=== PATIENT | male | born 2000 | race Hispanic/Latino ===

== ENCOUNTER 2024-01-28 03:14 | Emergency (ER) | payer MEDICARE, SELFPAY ==
[2024-01-28 03:20] VITALS: BP 130/76
[2024-01-28 03:27] VITALS: BP 118/77
--- NOTE | 2024-01-28 03:28 | ED.GENMED ---
History of Present Illness
General
Chief Complaint: Breathing Problem
Source: patient
Exam Limitations: none
Time Seen by Provider: 01/28/24 03:26
Nursing documentation reviewed up to this point in time: agreed with
History of Present Illness
History of Present Illness:
Pleasant 23-year-old male with a history of 'undiagnosed asthma 'prescribed inhalers. Tonight he had an asthma attack and did not have an inhaler. He came into the emergency department. Patient is a smoker. He advised to quit. Denies fever,
chills, nausea or vomiting.
Past History
Social History
Tobacco: Non-smoker
Alcohol: None
Phy Exam
Physical Exam
Physical Exam:
Physical Exam
Vital signs and allergy list reviewed and agreed with.
GENERAL: Alert , in moderate apparent distress
EYE: pupils equal, EOMI, anicteric
NECK: Supple, no significant adenopathy. No masses. Trachea midline
ENT: Oropharynx is clear, mmm.
CARDIAC: Regular rate and rhythm . No M/R/G
LUNGS: Diminished breath sounds bilaterally. Moderate acute respiratory distress. Wheezing in all lung khoury on initial exam. Repeat exam showed absolutely no wheezing.
ABDOMEN: Soft, without focal tenderness, no r/g,
NEUROLOGICAL: Alert and oriented, no focal neuro deficits
SKIN: Warm and dry, skin intact.
MUSCULOSKELETAL: No edema, well perfused. Moves all 4 extremities
PSYCH: Normal and appropriate interaction.
Course
Orders/Labs/Results
Orders:
Orders
01/28/24 03:21
EKG [Electrocardiogram (*1)] Urgent
Reason for Study: Chest Pain
EKG- Treatment ONCE
01/28/24 03:23
Ipratropium/Albuterol Sulfate [Duoneb] 3 ml .ROUTE .STK-MED ONE
01/28/24 03:25
Dexamethasone Pf [Decadron] 10 mg .ROUTE .STK-MED ONE
01/28/24 03:26
Dexamethasone Pf [Decadron] 10 mg PO NOW STA
01/28/24 03:27
Ipratropium/Albuterol Sulfate [Duoneb] 3 ml INH R NOW ONE
CR Chest - 2 Views Urgent
Comment:
Reason For Exam: dyspnea
Vital Signs
Initial and Last Documented VS:
Initial Vital Signs
Temp Pulse Resp Pulse Ox
98.6 F 104 28 98
01/28/24 03:16 01/28/24 03:16 01/28/24 03:16 01/28/24 03:16
Last Documented Vital Signs
Temp Pulse Resp BP Pulse Ox
98.6 F 83 19 111/62 95
01/28/24 03:16 01/28/24 04:30 01/28/24 04:30 01/28/24 04:05 01/28/24 04:30
*Critical Care Note
Total Time (30-74mins, 75-104mins- exclusive of procedures): Not Applicable
Update Note
Update Note:
Patient feeling much better. Wishes to be discharged. Speaking in complete sentences. Reviewed x-ray. Patient is a smoker. I did spend some time counseling him. He vows to quit smoking.
ED Attending Note
-
Portions of this chart may have been created with voice recognition software.� Occasional wrong word or��sound alike� substitutions may have occurred due to the inherent limitations of voice recognition software.
Discharge Plan
Departure
Patient Disposition: Home (Routine Discharge)
Date of Disposition: 01/28/24
Time of Disposition: 04:25
Patient with high blood pressure during this ER visit?: Yes
Condition: Good
Discharge Problem:
Asthma
Instructions: Asthma, Adult (DC), Quitting Smoking ED
Prescriptions:
New
prednisone 50 mg Tablet
50 mg PO DAILY Qty: 5 0RF
albuterol sulfate [Ventolin HFA] 90 mcg/actuation HFA aerosol inhaler
2 puff inhalation Q6H PRN (Reason: shortness of breath or wheezing) Qty: 8.5 2RF
No Action
fluticasone propionate [Flonase] 16 GM spray,suspension
16 gm NS HS
Referrals:
[facility] [Outside]
[facility] [Outside]
NONE,* [Family Provider] -
Activity Restrictions/Additional Instructions:
It was a pleasure meeting you and taking part in your care. We hope for your continued healing and wellness.
Please read discharge instructions in their entirety. However, they are for general education and may not describe your exact diagnosis at discharge. Information on your ER visit and medical conditions were discussed with you along with appropriate
follow up information...
If indicated, please take your medications as instructed and indicated on discharge paperwork.
Please schedule a follow up appointment as directed. Call to schedule an appointment
Please return to the emergency department with ANY change in, persisting, or worsening of symptoms. If any of your symptoms do not improve, or persist, or become more severe within 6-12 hours, please return to the emergency department for further
care.
Please return to the emergency department if you develop a headache, neck pain/stiffness, fever greater than 100.4F, chest pain, shortness of breath, persistent nausea, vomiting, slurred speech, difficulty walking, numbness/tingling, weakness, signs
of infection or any other symptoms that are worrisome to you.
If you have any questions or concerns please do not hesitate to call the Hospital at or E-mail me directly at [email or web address]
Interventions
Interventions:
*Risk Screen - Suicide Last Done: 01/28/24 03:16
*General Assessment Last Done: 01/28/24 03:32
*Neglect/Abuse Screening Last Done: 01/28/24 03:32
ED- Fall Risk Assessment Last Done: 01/28/24 03:32
*ED COVID-19 Vaccine History Last Done: 01/28/24 03:32
*Nursing Disposition Last Done: 01/28/24 04:47
ED- Cardiac Assessment Last Done: 01/28/24 03:32
ED- Pulmonary Assessment Last Done: 01/28/24 03:32
Discharge Date and Time
Discharge Date/Time: 01/28/24 04:48
Print Language: [id number]
[2024-01-28 03:31] VITALS: BMI 25.8
[2024-01-28] MEDS: DECADRON 10 MG PO (03:31)
[2024-01-28] MEDS: DUONEB 3 ML INH (03:31)
[2024-01-28 04:05] VITALS: BP 111/62
== END 2024-01-28 04:48 | disposition home or self-care (01) ==
LOC: EMR 03:14
PROVIDERS: EMERGENCY PHYSICIAN Student in an Organized Health Care Education/Training Program
DX: J45.909 Unspecified asthma, uncomplicated (principal); F17.200 Nicotine dependence, unspecified, uncomplicated
CPT/HCPCS: 94640; 99284; 71046; 93005